=== PATIENT | male | born 1975 | race Caucasian/White ===

== ENCOUNTER 2019-05-22 12:51 | Emergency (ER) | payer MEDICAID ==
--- NOTE | 2019-05-22 13:46 | EDM.PDOCBH ---
ED HPI GENERAL MEDICAL PROBLEM - General Chief Complaint: Behavioral/Psych Stated Complaint: WITHDRAWLS, PSYCH EVAL Time Seen by Provider: 05/22/19 13:34 Source of Information: Reports: Patient History Limitations: Reports: No Limitations, Other (anxious) - History of Present Illness INITIAL COMMENTS - FREE TEXT/NARRATIVE: Alert very anxious appearing 44 yo male present to ER from [facility] facility which he self admitted on Saturday evening. Patient stopped his Cymbalta a few weeks ago due to increase in suicidal thoughts which is similar to when we was on Prozac in the past. Patient has been on buttermaker continuous churn Klonopin, Hydrocodone, Trazodone and Gabapentin which his symptoms has been manageable but continued to drink alcohol with a very heavy binge over this weekend resulting in family and patient agreeing to detox. Patient was not given any of his routine medications while in Detox 4-6 days. Patient was on custodial Methadone and Suboxone for pain and other drugs in the past. Patient was at [facility] but did not see eye to with physician due to unable to give Suboxone and detox involved stopping all medications that altered behavior. Patient was not successful at facility. Patient has been in and out of treatment facilities in [facility]. Patient denies any new medical symptoms or concerns at this time. - Related Data Allergies Allergy/AdvReac Type Severity Reaction Status Date / Time No Known Allergies Allergy Verified 05/22/19 13:13 Home Meds: Home Meds Albuterol [Proventil HFA] 1 puff INH Q4HR PRN 05/22/19 [History] DULoxetine [Cymbalta] 30 mg PO DAILY 05/22/19 [History] Hydrocodone/Acetaminophen [Hydrocodon-Acetaminophn 10-325] 1 tab PO Q8H [History] Ibuprofen [Motrin] 800 mg PO TID 05/22/19 [History] Lidocaine HCl [Aspercreme] 1 applic TOP Q8H PRN 05/22/19 [History] Naloxone [Narcan] 1 spray MARQUES ASDIRECTED 05/22/19 [History] traZODone 150 mg PO BEDTIME 05/22/19 [History] Past Medical History Musculoskeletal History: Reports: Back Pain, Chronic Other Musculoskeletal History: herniated L4,L5,s1 Neurological History: Reports: Seizure Psychiatric History: Reports: Addiction, Anxiety, Depression, Hallucinations, Panic Attack, Suicide Attempt - Infectious Disease History Infectious Disease History: Reports: Chicken Pox Social & Family History - Tobacco Use Smoking Status *Q: Current Every Day Smoker Years of Tobacco use: 20 Packs/Tins Daily: 1 - Caffeine Use Caffeine Use: Reports: Coffee - Alcohol Use Date of Last Drink: 05/16/19 Time of Last Drink: 20:00 - Recreational Drug Use Recreational Drug Type: Reports: Methamphetamine Recreational Drug Use Frequency: Not Used In Over 6 Months ED ROS GENERAL - Review of Systems Review Of Systems: ROS reveals no pertinent complaints other than HPI. ED EXAM, BEHAVIORAL HEALTH - Physical Exam Exam: See Below Exam Limited By: No Limitations General Appearance: Alert, WD/WN, Anxious, Moderate Distress Eye Exam: Bilateral Eye: EOMI, PERRL Ears: Normal External Exam, Hearing Grossly Normal Nose: Normal Inspection, Normal Mucosa Throat/Mouth: Normal Inspection, Normal Lips, Normal Teeth, Normal Gums, Normal Voice, No Airway Compromise Head: Atraumatic, Normocephalic Neck: Normal Inspection, Supple, Full Range of Motion Respiratory/Chest: No Respiratory Distress, Lungs Clear, Normal Breath Sounds, No Accessory Muscle Use, Chest Non-Tender Cardiovascular: Normal Peripheral Pulses, Regular Rate, Rhythm, No Edema, No Gallop, No JVD, No Murmur, No Rub GI/Abdominal: Normal Bowel Sounds, Soft, Non-Tender, No Organomegaly, No Distention, No Abnormal Bruit, No Mass Back Exam: Normal Inspection, Full Range of Motion, NT Extremities: Normal Inspection, Normal Range of Motion, Non-Tender, Normal Capillary Refill, No Pedal Edema Neurological: Alert, Normal Mood/Affect, CN II-XII Intact, Normal Cognition, Normal Gait, Normal Reflexes, No Motor/Sensory Deficits, Oriented x 3 Psychiatric: Alert, Normal Affect, Normal Cognition, Normal Mood, Oriented Skin Exam: Warm, Dry, Intact, Normal color, No rash EKG INTERPRETATION EKG Date: 05/22/19 Time: 15:03 Rhythm: NSR Rate (Beats/Min): 75 [place]: Normal P-Wave: Variable QRS: Normal ST-T: Normal QT: Normal Comparison: NA - No Prior EKG COURSE, BEHAVIORAL HEALTH COMP - Course Vital Signs: Last Vital Signs Temp 37.0 C 05/23/19 13:37 Pulse 80 05/23/19 13:37 Resp 12 05/23/19 13:37 BP 147/84 H 05/23/19 13:37 Pulse Ox 98 05/23/19 13:37 Orders, Labs, Meds: Active Orders 24 hr Category Date Time Status Regular Diet [DIET] Diet 05/22/19 Dinner Active Acetaminophen [Tylenol] Med 05/22/19 21:51 Active 650 mg PO Q4H PRN Medication Orders Acetaminophen (Tylenol) 650 mg PO Q4H PRN PRN Reason: Pain Last Admin: 05/23/19 07:16 Dose: 650 mg Admin: 05/22/19 21:55 Dose: 650 mg Laboratory Tests 05/22/19 05/22/19 05/22/19 Range/Units 14:49 14:49 14:49 WBC 8.8 (4.5-11.0) K/uL RBC 4.76 (4.30-5.90) M/uL Hgb 13.9 (12.0-15.0) g/dL Hct 42.8 (40.0-54.0) % MCV 90 (80-98) fL MCH 29 (27-31) pg MCHC 33 (32-36) % Plt Count 226 (150-400) K/uL Neut % (Auto) 64 (36-66) % Lymph % (Auto) 28 (24-44) % [place] % (Auto) 8 H (2-6) % Eos % (Auto) 1 L (2-4) % Baso % (Auto) 0 (0-1) % PT 10.7 (9.5-12.0) sec INR 0.99 (0.80-1.20) APTT (27.0-36.0) sec Sodium 139 L (140-148) mmol/L Potassium 3.9 (3.6-5.2) mmol/L Chloride 102 (100-108) mmol/L Carbon Dioxide 27 (21-32) mmol/L Anion Gap 13.9 (5.0-14.0) mmol/L BUN 11 (7-18) mg/dL Creatinine 1.1 (0.8-1.3) mg/dL Est Cr Clr Drug Dosing 101.71 mL/min Estimated GFR (MDRD) > 60 (>60) Glucose 87 (74-106) mg/dL Calcium 8.9 (8.5-10.1) mg/dL Magnesium (1.8-2.4) mg/dL Total Bilirubin 0.2 (0.2-1.0) mg/dL Direct Bilirubin 0.07 (0.0-0.2) mg/dL Indirect Bilirubin TNP AST 20 (15-37) U/L ALT 32 (12-78) U/L Alkaline Phosphatase 89 (46-116) U/L Ammonia (11-32) mmol/L Total Protein 7.7 (6.4-8.2) g/dL Albumin 3.9 (3.4-5.0) g/dL Globulin 3.8 H (2.3-3.5) g/dL Albumin/Globulin Ratio 1.0 L (1.2-2.2) Free T4 (0.76-1.46) ng/dL TSH, Ultra Sensitive (0.358-3.740) uIU/mL Urine Opiates Screen (NEGATIVE) Ur Oxycodone Screen (NEGATIVE) Urine Methadone Screen (NEGATIVE) Ur Propoxyphene Screen (NEGATIVE) Ur Barbiturates Screen (NEGATIVE) Ur Tricyclics Screen (NEGATIVE) Ur Phencyclidine Scrn (NEGATIVE) Ur Amphetamine Screen (NEGATIVE) U Methamphetamines Scrn (NEGATIVE) Urine MDMA Screen (NEGATIVE) U Benzodiazepines Scrn (NEGATIVE) U Cocaine Metab Screen (NEGATIVE) U Marijuana (THC) Screen (NEGATIVE) Ethyl Alcohol mg/dL Ketones (NEGATIVE) 05/22/19 05/22/19 05/22/19 Range/Units 14:49 14:49 14:49 WBC (4.5-11.0) K/uL RBC (4.30-5.90) M/uL Hgb (12.0-15.0) g/dL Hct (40.0-54.0) % MCV (80-98) fL MCH (27-31) pg MCHC (32-36) % Plt Count (150-400) K/uL Neut % (Auto) (36-66) % Lymph % (Auto) (24-44) % [place] % (Auto) (2-6) % Eos % (Auto) (2-4) % Baso % (Auto) (0-1) % PT (9.5-12.0) sec INR (0.80-1.20) APTT 24.8 L (27.0-36.0) sec Sodium (140-148) mmol/L Potassium (3.6-5.2) mmol/L Chloride (100-108) mmol/L Carbon Dioxide (21-32) mmol/L Anion Gap (5.0-14.0) mmol/L BUN (7-18) mg/dL Creatinine (0.8-1.3) mg/dL Est Cr Clr Drug Dosing mL/min Estimated GFR (MDRD) (>60) Glucose (74-106) mg/dL Calcium (8.5-10.1) mg/dL Magnesium 2.0 (1.8-2.4) mg/dL Total Bilirubin (0.2-1.0) mg/dL Direct Bilirubin (0.0-0.2) mg/dL Indirect Bilirubin AST (15-37) U/L ALT (12-78) U/L Alkaline Phosphatase (46-116) U/L Ammonia (11-32) mmol/L Total Protein (6.4-8.2) g/dL Albumin (3.4-5.0) g/dL Globulin (2.3-3.5) g/dL Albumin/Globulin Ratio (1.2-2.2) Free T4 0.92 (0.76-1.46) ng/dL TSH, Ultra Sensitive 1.380 (0.358-3.740) uIU/mL Urine Opiates Screen (NEGATIVE) Ur Oxycodone Screen (NEGATIVE) Urine Methadone Screen (NEGATIVE) Ur Propoxyphene Screen (NEGATIVE) Ur Barbiturates Screen (NEGATIVE) Ur Tricyclics Screen (NEGATIVE) Ur Phencyclidine Scrn (NEGATIVE) Ur Amphetamine Screen (NEGATIVE) U Methamphetamines Scrn (NEGATIVE) Urine MDMA Screen (NEGATIVE) U Benzodiazepines Scrn (NEGATIVE) U Cocaine Metab Screen (NEGATIVE) U Marijuana (THC) Screen (NEGATIVE) Ethyl Alcohol mg/dL Ketones (NEGATIVE) 05/22/19 05/22/19 05/22/19 Range/Units 14:49 14:49 14:49 WBC (4.5-11.0) K/uL RBC (4.30-5.90) M/uL Hgb (12.0-15.0) g/dL Hct (40.0-54.0) % MCV (80-98) fL MCH (27-31) pg MCHC (32-36) % Plt Count (150-400) K/uL Neut % (Auto) (36-66) % Lymph % (Auto) (24-44) % [place] % (Auto) (2-6) % Eos % (Auto) (2-4) % Baso % (Auto) (0-1) % PT (9.5-12.0) sec INR (0.80-1.20) APTT (27.0-36.0) sec Sodium (140-148) mmol/L Potassium (3.6-5.2) mmol/L Chloride (100-108) mmol/L Carbon Dioxide (21-32) mmol/L Anion Gap (5.0-14.0) mmol/L BUN (7-18) mg/dL Creatinine (0.8-1.3) mg/dL Est Cr Clr Drug Dosing mL/min Estimated GFR (MDRD) (>60) Glucose (74-106) mg/dL Calcium (8.5-10.1) mg/dL Magnesium (1.8-2.4) mg/dL Total Bilirubin (0.2-1.0) mg/dL Direct Bilirubin (0.0-0.2) mg/dL Indirect Bilirubin AST (15-37) U/L ALT (12-78) U/L Alkaline Phosphatase (46-116) U/L Ammonia 11 (11-32) mmol/L Total Protein (6.4-8.2) g/dL Albumin (3.4-5.0) g/dL Globulin (2.3-3.5) g/dL Albumin/Globulin Ratio (1.2-2.2) Free T4 (0.76-1.46) ng/dL TSH, Ultra Sensitive (0.358-3.740) uIU/mL Urine Opiates Screen (NEGATIVE) Ur Oxycodone Screen (NEGATIVE) Urine Methadone Screen (NEGATIVE) Ur Propoxyphene Screen (NEGATIVE) Ur Barbiturates Screen (NEGATIVE) Ur Tricyclics Screen (NEGATIVE) Ur Phencyclidine Scrn (NEGATIVE) Ur Amphetamine Screen (NEGATIVE) U Methamphetamines Scrn (NEGATIVE) Urine MDMA Screen (NEGATIVE) U Benzodiazepines Scrn (NEGATIVE) U Cocaine Metab Screen (NEGATIVE) U Marijuana (THC) Screen (NEGATIVE) Ethyl Alcohol < 3 mg/dL Ketones Negative (NEGATIVE) 05/22/19 Range/Units 14:50 WBC (4.5-11.0) K/uL RBC (4.30-5.90) M/uL Hgb (12.0-15.0) g/dL Hct (40.0-54.0) % MCV (80-98) fL MCH (27-31) pg MCHC (32-36) % Plt Count (150-400) K/uL Neut % (Auto) (36-66) % Lymph % (Auto) (24-44) % [place] % (Auto) (2-6) % Eos % (Auto) (2-4) % Baso % (Auto) (0-1) % PT (9.5-12.0) sec INR (0.80-1.20) APTT (27.0-36.0) sec Sodium (140-148) mmol/L Potassium (3.6-5.2) mmol/L Chloride (100-108) mmol/L Carbon Dioxide (21-32) mmol/L Anion Gap (5.0-14.0) mmol/L BUN (7-18) mg/dL Creatinine (0.8-1.3) mg/dL Est Cr Clr Drug Dosing mL/min Estimated GFR (MDRD) (>60) Glucose (74-106) mg/dL Calcium (8.5-10.1) mg/dL Magnesium (1.8-2.4) mg/dL Total Bilirubin (0.2-1.0) mg/dL Direct Bilirubin (0.0-0.2) mg/dL Indirect Bilirubin AST (15-37) U/L ALT (12-78) U/L Alkaline Phosphatase (46-116) U/L Ammonia (11-32) mmol/L Total Protein (6.4-8.2) g/dL Albumin (3.4-5.0) g/dL Globulin (2.3-3.5) g/dL Albumin/Globulin Ratio (1.2-2.2) Free T4 (0.76-1.46) ng/dL TSH, Ultra Sensitive (0.358-3.740) uIU/mL Urine Opiates Screen Negative (NEGATIVE) Ur Oxycodone Screen Negative (NEGATIVE) Urine Methadone Screen Negative (NEGATIVE) Ur Propoxyphene Screen Negative (NEGATIVE) Ur Barbiturates Screen Negative (NEGATIVE) Ur Tricyclics Screen Negative (NEGATIVE) Ur Phencyclidine Scrn Negative (NEGATIVE) Ur Amphetamine Screen Negative (NEGATIVE) U Methamphetamines Scrn Negative (NEGATIVE) Urine MDMA Screen Negative (NEGATIVE) U Benzodiazepines Scrn Presumptive positive H (NEGATIVE) U Cocaine Metab Screen Negative (NEGATIVE) U Marijuana (THC) Screen Negative (NEGATIVE) Ethyl Alcohol mg/dL Ketones (NEGATIVE) Medications Generic Name Dose Route Start Last Admin Trade Name Freq PRN Reason Stop Dose Admin Acetaminophen 650 mg 05/22/19 21:51 05/23/19 07:16 Tylenol PO 650 mg Q4H PRN Administration Pain Discontinued Medications Generic Name Dose Route Start Last Admin Trade Name Freq PRN Reason Stop Dose Admin Acetaminophen 650 mg 05/23/19 14:54 05/23/19 15:03 Tylenol PO 05/23/19 14:55 650 mg NOW ONE Administration Diphenhydramine HCl 50 mg 05/22/19 14:35 05/22/19 15:55 Benadryl IM 05/22/19 14:36 50 mg ONETIME ONE Administration Duloxetine HCl 30 mg 05/23/19 07:32 05/23/19 10:14 Cymbalta PO 05/23/19 07:33 30 mg ONETIME ONE Administration Gabapentin 600 mg 05/22/19 21:17 05/22/19 21:23 Neurontin PO 05/22/19 21:18 600 mg ONETIME ONE Administration Gabapentin 600 mg 05/23/19 14:53 05/23/19 15:03 Neurontin PO 05/23/19 14:54 600 mg ONETIME ONE Administration Ibuprofen 800 mg 05/22/19 21:51 05/22/19 21:55 Motrin PO 05/22/19 21:52 800 mg ONETIME ONE Administration Ibuprofen 800 mg 05/23/19 07:32 05/23/19 10:14 Motrin PO 05/23/19 07:33 800 mg ONETIME ONE Administration Ibuprofen 800 mg 05/23/19 14:54 Motrin PO 05/23/19 14:55 ONETIME ONE Lorazepam 2 mg 05/22/19 14:36 05/22/19 15:55 Ativan IM 05/22/19 14:37 2 mg ONETIME ONE Administration Lorazepam 2 mg 05/22/19 18:05 05/22/19 18:56 Ativan PO 05/22/19 18:06 2 mg ONETIME ONE Administration Trazodone HCl 150 mg 05/22/19 21:16 05/22/19 21:23 Trazodone PO 05/22/19 21:17 150 mg ONETIME ONE Administration Re-Assessment/Re-Exam: [facility] Chart review completed for the last 4 years (since 2014) noting Chronic Alcohol Abuse, Chronic Low Back pain with Lumbar Spine steroid injections inthe last month, Polysubstance abuse, Episodic Mood disorder, Primary Insomnia, General Anxiety Disorder, Depression, 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 Medication List reviewed: Cymbalta , [place], Trazodone, Albuterol, Lidocaine Aspercreme, Narcan use if concern regarding overdose and Ibuprofen. Patient's last visit with Dr Brooks (Pain Management provider) was April 09, noting pain level 8 out of 10 with 4 out 10 his managed pain level. Patient has felony charges due to DUI which is awaiting sentencing with drug treatment program may be required. I was not able to speak to [employer] due to after hours. Patient assessment completed and concern regarding suicidal thoughts with plan of drinking alcohol to the point of , which has resulted in 2-3 days he woke up in the hospital. Patient was reassessed and patient was updated regarding urine and blood testing was negative for acute concerns. Patient had IM Ativan and Benadryl ordered. Mobile Crisis will be arriving around 6pm to assess patient for placement and discuss mental health and polysubstance abuse treatment options. Medical work- up is negative today to explain reason for mental health concerns. Patient is at risk if discharge due to suicidal ideation and plan. Inpatient placement recommended by myself and Crisis provider. Working on placement. Evening medications ordered Trazodone 150mg and gabapentin 600mg bedtime doses per medication history obtained from [facility]. Placement on hold tonight due to accepting facility in [place] is concerned that he has continued withdrawal symptoms secondary to Ativan doses given during ER visit for anxiety and panic symptoms. Patient is updated, reassessment in the am. Patient is not on a hold due to cooperative with evaluation and plan for treatment for acute paranoid, depression, anxiety/panic with history of polysubstance abuse including alcohol. Patient has not been using illegal or illicit drugs for a number of years. Patient has a history of Methadone and Suboxone treatment programs but [place] in the last [place]. Patient binged on alcohol over the past weekend. Patient has been a [facility] detox since Saturday night. Re-Assessment/Re-Exam Date: 05/23/19 (Patient remains medically stable at this time. Symptoms of underlying depression, anxiety and panic disorder which has led to increased alcohol and prevsious illicit drug use ) Re-Assessment/Re-Exam Time: 14:01 Medical Clearance: Patient has been medically cleared to be transferred to inpatient treatment facility since yesterday evening. Patient is pending acceptance and transfer for mental health concerns with acute suicidal ideation and intent with underlying depression, anxiety and panic disorder. Patient was given Ativan and Benadryl yesterday due to underlying anxiety and panic symptoms with increase insomnia from abrupt discontinuation of Trazodone ( not slept in 4 days) while at [facility]. Patient has not been given Ativan since yesterday afternoon (Immediately after Crisis Interview last night around 7pm) Patient was given Gabapentin 600mg and Trazodone 150mg at 9pm last night, he slept from 10pm to 3:30 this am. Patient has chronic back pain but had been off Hydrocodone for the last week: Tylenol, Ibuprofen and Gabapentin have been continued during ER visit for pain management. Patient has been pleasant, anxious, cooperative and agreeable during entire ER stay which is now greater than 24 hours. 05/23/19 14:01 Discharge vs Psych Eval/Treatment:: Patient is accepted by [facility] in [place] and nursing staff to arrange transportation. Unfortunately due to limited transportation options due to suicidal intent, anxiety and depression. Only safe transport available at this time is BLS to [facility] [place] is part of [facility] in [place]. 05/23/19 16:30 17:30 transport has arrived to take patient to [place]. Departure - Departure Time of Disposition: 17:34 Disposition: DC/Tfer to Psych Hosp/Unit [facility] Clinical Impression: Suicidal intent, Anxiety, Depression, Paranoia, Polysubstance abuse, Chronic low back pain, Alcohol abuse, Panic disorder - Discharge Information Referrals: PCP,None [Primary Care Provider] - Forms: ED Department Discharge - Problem List & Annotations (1) Paranoia SNOMED Code(s): 532904224 Code(s): F22 - DELUSIONAL DISORDERS Status: Acute Current Visit: Yes (2) Depression SNOMED Code(s): 02547164 Code(s): F32.9 - MAJOR DEPRESSIVE DISORDER, SINGLE EPISODE, UNSPECIFIED Status: Acute Current Visit: Yes (3) Anxiety SNOMED Code(s): 33356880 Code(s): F41.9 - ANXIETY DISORDER, UNSPECIFIED Status: Acute Current Visit: Yes (4) Suicidal intent SNOMED Code(s): 560553892, 416108204 Code(s): R45.851 - SUICIDAL IDEATIONS Status: Acute Current Visit: Yes (5) Polysubstance abuse SNOMED Code(s): 086518194 Code(s): F19.10 - OTHER PSYCHOACTIVE SUBSTANCE ABUSE, UNCOMPLICATED Status : Acute Current Visit: Yes - My Orders Last 24 Hours: My Active Orders 05/22/19 21:51 Acetaminophen [Tylenol] 650 mg PO Q4H PRN 05/22/19 Dinner Regular Diet [DIET] - Assessment/Plan Last 24 Hours: My Active Orders 05/22/19 21:51 Acetaminophen [Tylenol] 650 mg PO Q4H PRN 05/22/19 Dinner Regular Diet [DIET]
[2019-05-22] MEDS ORDERED: diphenhydrAMINE 50 MG/ML SDV IM ONE (14:35)
[2019-05-22] MEDS ORDERED: LORazepam 2 MG/ML SDV IM ONE (14:36)
[2019-05-22] MEDS ORDERED: LORazepam 1 MG Tab PO ONE (18:05)
[2019-05-22] MEDS ORDERED: traZODone 50 MG Tab PO ONE (21:16)
[2019-05-22] MEDS ORDERED: Gabapentin 300 MG Cap PO ONE (21:17)
[2019-05-22] MEDS ORDERED: Ibuprofen 800 MG Tab PO ONE (21:51)
[2019-05-22] MEDS: Acetaminophen 325 MG Tab PO PRN (21:55)
[2019-05-23] MEDS: Acetaminophen 325 MG Tab PO PRN (07:16)
[2019-05-23] MEDS ORDERED: Ibuprofen 800 MG Tab PO ONE ×2 (07:32→14:54)
[2019-05-23] MEDS ORDERED: DULoxetine 30 MG Cap PO ONE (07:32)
[2019-05-23] MEDS ORDERED: Gabapentin 300 MG Cap PO ONE (14:53)
[2019-05-23] MEDS ORDERED: Acetaminophen 325 MG Tab PO ONE (14:54)
== END 2019-05-23 17:46 ==
LOC: JP.ED 12:51
DX: F32.9 Major depressive disorder, single episode, unspecified (principal); F19.10 Other psychoactive substance abuse, uncomplicated; M54.5 Low back pain; G89.29 Other chronic pain; F41.0 Panic disorder [episodic paroxysmal anxiety]; F10.229 Alcohol dependence with intoxication, unspecified; F10.250 Alcohol dependence with alcohol-induced psychotic disorder with delusions; Y90.0 Blood alcohol level of less than 20 mg/100 ml; F17.210 Nicotine dependence, cigarettes, uncomplicated; Z79.899 Other long term (current) drug therapy
CPT/HCPCS: 36415; 80048; 80076; 80305; 80320; 82009; 82140; 83735; 84439; 84443; 85025; 85610; 85730; 93005; 96372; 99284; A9270; J1200; J2060; 99283; G0480